=== PATIENT | male | born 1950 | race Caucasian/White ===

== ENCOUNTER 2018-08-06 13:09 | Inpatient (IN) | payer MEDICARE, OTHER ==
[~2018-08-06] VITALS: Ht 177.8 cm; Wt 103.9 kg
[2018-08-06 13:57] LABS: Basophils # (auto) 0 uL; Basophils % (auto) 0.5 % (0.0-2.0); Eosinophils # (auto) 0.1 uL; Eosinophils % (auto) 1.5 % (0.0-7.0); Hematocrit 41.1 % (41.0-53.0); Hemoglobin 13.7 g/dL (13.5-17.5); Lymphocytes % (auto) 29.8 % (10.0-50.0); Mean Corpuscular Hemoglobin 31.1 pg (28.0-32.0); Mean Corpuscular Hgb Conc. 33.4 g/dL (32.0-36.0); Mean Corpuscular Volume 93.2 fL (80.0-100.0); Monocytes # (auto) 0.7 uL; Neutrophils % (auto) 58.2 % (37.0-80.0); Nucleated Red Blood Cells % 0.1 %; Platelet Count (auto) 296 10^3/uL (140-450); Red Blood Cells 4.41 10^6/uL (4.5-5.90); Red Cell Distribution Width 13.3 % (11.8-14.3); White Blood Cell 6.8 10^3/uL (4.4-10.8)
[2018-08-06 14:04] LABS: Albumin 4.1 g/dL (3.4-5.0)
[2018-08-06 14:07] LABS: BUN/Creatinine Ratio 13.6; Bilirubin, Total 0.5 mg/dL (0.2-1.0); Total Protein 7.1 g/dL (6.4-8.2)
[2018-08-06] MEDS ORDERED: MORPHINE SULFATE 4 MG/ML SYR/VIAL IV PRN (14:30)
[2018-08-06] MEDS ORDERED: NITROGLYCERIN 0.4 MG SL TAB SL PRN (14:30)
[2018-08-06] MEDS ORDERED: LORazepam 2MG/ML-1ML VIAL IV PRN ×2 (14:30→18:45)
[2018-08-06] MEDS ORDERED: DEXTROSE (50%) 50ML SYRG IV PRN (14:30)
[2018-08-06] MEDS ORDERED: PAR20T PO (15:04)
[2018-08-06] MEDS ORDERED: FENO5TAB PO (15:04)
[2018-08-06] MEDS ORDERED: OMEG100078 PO (15:04)
[2018-08-06] MEDS ORDERED: ASPI-231 PO (15:04)
[2018-08-06] MEDS ORDERED: ASPI81CH43 PO (15:04)
[2018-08-06] MEDS ORDERED: CARV6.25 PO (15:04)
[2018-08-06] MEDS ORDERED: GLYB2.5T8 PO (15:04)
[2018-08-06] MEDS ORDERED: CLOP75TA28 PO (15:04)
[2018-08-06] MEDS ORDERED: METF-370 PO (15:04)
[2018-08-06] MEDS ORDERED: NIAC500T71 PO (15:04)
[2018-08-06] MEDS ORDERED: ESOM40CA39 PO (15:04)
[2018-08-06] MEDS ORDERED: EZET10TA6 PO (15:04)
[2018-08-06] MEDS ORDERED: CHOL20007 PO (15:04)
[2018-08-06] MEDS ORDERED: ATO40T PO (15:04)
[2018-08-06] MEDS ORDERED: LISI2.5T47 PO (15:04)
[2018-08-06] MEDS: SODIUM CHLORIDE 0.9% 1,000 ML IV SCH (15:30)
[2018-08-06] MEDS: ACCU-CHEK COMFORT CURVE STRIP VI SCH ×2 (17:00→22:16)
[2018-08-06] MEDS: InsuLIN REG 1unit/0.01ml Soln (100units/ml) SC SCH ×2 (17:00→22:00)
[2018-08-06 19:33] VITALS: BP 135/69
[2018-08-06 20:00] VITALS: BP 138/80
[2018-08-06 21:51] VITALS: BP 138/80
[2018-08-06] MEDS ORDERED: ATORVASTATIN 20 MG TAB PO SCH (22:00)
[2018-08-06 23:26] LABS: Urine WBC None Seen /hpf (0 - 3)
[2018-08-06 23:37] LABS: Urine Bacteria NONE SEEN /hpf (None Seen); Urine Blood Negative /uL (Negative); Urine Specific Gravity 1.005 (1.001-1.035)
[2018-08-06 23:52] LABS: Alcohol, Urine < 3.0 mg/dL (0-5); Amphetamine Screen, Urine NEGATIVE (NEGATIVE); Barbiturate Scree,Urine NEGATIVE (NEGATIVE); Benzodiazephine Screen, Urine NEGATIVE (NEGATIVE); Cannabinoid Screen, Urine POSITIVE (NEGATIVE); Cocaine Screen, Urine NEGATIVE (NEGATIVE); Opiate Scree,Urine NEGATIVE (NEGATIVE); Phencyclidine Screen, Urine NEGATIVE (NEGATIVE)
[2018-08-07] MEDS ORDERED: ACETAMINOPHEN 500 MG TAB PO ONE (00:15)
[2018-08-07] MEDS ORDERED: diphenhdrAMINE HCL 25 MG CAP PO ONE (00:15)
[2018-08-07] MEDS: SODIUM CHLORIDE 0.9% 1,000 ML IV SCH (03:20)
[2018-08-07 05:00] VITALS: BP 128/68
[2018-08-07] MEDS: ACCU-CHEK COMFORT CURVE STRIP VI SCH ×2 (05:46→12:11)
[2018-08-07] MEDS: InsuLIN REG 1unit/0.01ml Soln (100units/ml) SC SCH ×2 (05:46→11:30)
[2018-08-07 08:00] VITALS: BP 153/89
[2018-08-07] MEDS ORDERED: ASPirin 81 mg TAB PO SCH ×2 (10:00)
[2018-08-07] MEDS ORDERED: CLOPIDOGREL BISULFATE 75 MG TAB PO SCH (10:00)
[2018-08-07] MEDS ORDERED: LISINOPRIL 10 MG TAB PO SCH (10:00)
[2018-08-07 12:00] VITALS: BP 133/77
[2018-08-07 14:08] VITALS: BP 133/77
[2018-08-07 17:00] VITALS: BP 125/75
== END 2018-08-07 17:30 | disposition home or self-care (01) | DRG 74 ==
LOC: ER 13:09 → EDBD 13:09 → TELE 14:36 → TELE-CENTR 17:00
PROVIDERS: ADMIT Internal Medicine; ATTEND Internal Medicine
DX: G90.8 Other disorders of autonomic nervous system (principal); R44.2 Other hallucinations; I25.10 Atherosclerotic heart disease of native coronary artery without angina pectoris; G40.909 Epilepsy, unspecified, not intractable, without status epilepticus; E11.9 Type 2 diabetes mellitus without complications; E78.5 Hyperlipidemia, unspecified; F12.90 Cannabis use, unspecified, uncomplicated; F17.210 Nicotine dependence, cigarettes, uncomplicated; I10 Essential (primary) hypertension; I25.2 Old myocardial infarction; Z82.49 Family history of ischemic heart disease and other diseases of the circulatory system; Z95.1 Presence of aortocoronary bypass graft
CPT/HCPCS: 36415; 70450; 70551; 71045; 80053; 80307; 80320; 81001; 82550; 82962; 83036; 84484; 85025; 93005; 93306; 94761; 95819; 96360; G0378